=== PATIENT | male | born 1950 | race Caucasian/White ===

== ENCOUNTER 2018-07-11 09:05 | Day surgery (SDC) | payer MEDICARE, BC ==
[~2018-07-11] VITALS: Ht 172.7 cm; Wt 93.4 kg
[2018-07-11] VITALS (10 sets, daily range): BP systolic 126–151; BP diastolic 62–84
[~2018-07-11 09:05] MED LIST: DICL75TA5 PO; LORA0.5T PO; NAPR-56 PO; NOR5T PO; NORCO10T PO; PARO20TA53 PO; Senna PO; ZOLP10TA5 PO
[2018-07-11] MEDS ORDERED: diphenhydrAMINE 25mg capsule PO PRN (09:20)
[2018-07-11] MEDS ORDERED: sod bicarbonate 150mEq in D5W 1,150 ML IV ONE (09:20)
[2018-07-11] MEDS ORDERED: ASPI81TA52 PO (09:49)
[2018-07-11] MEDS ORDERED: HYDR-4353 PO (09:49)
[2018-07-11] MEDS ORDERED: DULO60CA64 PO (09:49)
[2018-07-11] MEDS ORDERED: BUPR1PAT20 TOP (09:49)
[2018-07-11] MEDS ORDERED: CARV6.253 PO (09:49)
[2018-07-11] MEDS ORDERED: ATOR40TA PO (09:49)
[2018-07-11] MEDS ORDERED: TICA90TA2 PO (09:49)
[2018-07-11] MEDS ORDERED: LISI-604 PO (09:49)
[2018-07-11 10:13] LABS: BASOPHILS # (AUTO) 0.1 X10'3 (0-0.2); BASOPHILS % (AUTO) 1.1 % (0-1); EOSINOPHILS # (AUTO) 0.4 X10'3 (0-0.9); EOSINOPHILS % (AUTO) 5.4 % (0-6); HEMATOCRIT 39.6 % (42.0-52.0); HEMOGLOBIN 13.4 g/dl (14.0-17.9); LYMPHOCYTES # (AUTO) 1.9 X10'3 (1.1-4.8); LYMPHOCYTES % (AUTO) 25.6 % (21-51); MEAN CORPUSCULAR HEMOGLOBIN 27.9 PG (27.0-31.0); MEAN CORPUSCULAR HGB CONC 33.9 g/dL (33.0-36.5); MEAN CORPUSCULAR VOLUME 82.5 FL (78-98); MEAN PLATELET VOLUME 8.6 FL (7.4-10.4); MONOCYTES % (AUTO) 13.8 % (2-12); NEUTROPHILS # (AUTO) 4.1 X10'3 (1.8-7.7); NEUTROPHILS % (AUTO) 54.1 % (42-75); PLATELET COUNT 275 X10'3 (140-440); RED CELL DISTRIBUTION WIDTH 16.5 % (11.5-14.5); WHITE BLOOD COUNT 7.5 X10'3 (4.5-11.0)
[2018-07-11] MEDS ORDERED: iohexol 350 MG/ML 50ML vial IV ONE (10:17)
[2018-07-11] MEDS ORDERED: fentaNYL/PF 50MCG/1 ML 2ML syringe ONE ×2 (10:17→11:00)
[2018-07-11] MEDS ORDERED: LIDOcaine 1% (10mg/ml)w/preservative injection 20ml MDV ONE (10:17)
[2018-07-11] MEDS ORDERED: midazolam 2 mg/2 ml injection ONE ×3 (10:17→10:58)
[2018-07-11] MEDS ORDERED: iohexol 350MG/ML 100ml bottle IV ONE (10:18)
[2018-07-11 10:20] LABS: ALBUMIN 3.5 G/DL (3.4-5.0); ANION GAP 10 (8-16); BLOOD UREA NITROGEN 13 MG/DL (7-18); BUN/CREATININE RATIO 15.9 (5.4-32.0); CALCIUM 9.3 MG/DL (8.5-10.1); CHLORIDE 105 MMOL/L (99-107); CREATININE 0.82 MG/DL (0.60-1.10); GLUCOSE 128 MG/DL (70-104); POTASSIUM 3.9 MMOL/L (3.5-5.1); SODIUM 141 MMOL/L (135-145); TOTAL CARBON DIOXIDE 25.6 MMOL/L (24-32); eGFR > 90 ML/MIN
[2018-07-11 10:34] LABS: PROTHROMBIN TIME 10.5 SECONDS (9.0-12.0)
[2018-07-11] MEDS ORDERED: normal saline 1000ml 1,000 ML IV SCH (10:35)
[2018-07-11] MEDS ORDERED: proCHLORperazine 10 MG/2 ml inj ONE (10:53)
== END 2018-07-11 15:30 | disposition home or self-care (01) ==
LOC: SSTAY O 09:05
PROVIDERS: ATTEND Internal Medicine Cardiovascular Disease
DX: I25.10 Atherosclerotic heart disease of native coronary artery without angina pectoris (principal); E78.5 Hyperlipidemia, unspecified; I10 Essential (primary) hypertension; E11.9 Type 2 diabetes mellitus without complications; F41.9 Anxiety disorder, unspecified; I25.5 Ischemic cardiomyopathy; Z98.890 Other specified postprocedural states; Z90.81 Acquired absence of spleen; Z82.3 Family history of stroke; Z82.0 Family history of epilepsy and other diseases of the nervous system; Z79.82 Long term (current) use of aspirin; Z79.899 Other long term (current) drug therapy; Z95.5 Presence of coronary angioplasty implant and graft
CPT/HCPCS: 36415; 80048; 82948; 83735; 85025; 85610; 93005; 93458; 99152; A6257; J0780; J1644; J2001; J2250; J3010; J7030; Q0163; Q9967; A4620; C1760; C1769; C1894

== ENCOUNTER 2019-01-06 13:10 | Outpatient (CLI) | payer MEDICARE, BC ==
[~2019-01-06] VITALS: Ht 172.7 cm; Wt 90.7 kg
[~2019-01-06 13:10] MED LIST changes: +ASPI81TA52 PO; +ATOR40TA PO; +BUPR1PAT20 TOP; +CARV6.253 PO; -DICL75TA5 PO; +DULO60CA65 PO; +HYDR-4353 PO; +LISI-604 PO; -LORA0.5T PO; -NAPR-56 PO; -NOR5T PO; -NORCO10T PO; -PARO20TA53 PO; -Senna PO; +TICA90TA2 PO
[2019-01-06] MEDS ORDERED: BUSP15TA7 PO (14:44)
[2019-01-06] MEDS ORDERED: METF-950 PO (14:44)
[2019-01-06] MEDS ORDERED: MELO-102 PO (14:44)
[2019-01-06 15:25] LABS: BASOPHILS # (AUTO) 0.1 X10'3 (0-0.2); BASOPHILS % (AUTO) 0.9 % (0-1); EOSINOPHILS # (AUTO) 0.5 X10'3 (0-0.9); EOSINOPHILS % (AUTO) 5.1 % (0-6); LYMPHOCYTES # (AUTO) 2.1 X10'3 (1.1-4.8); LYMPHOCYTES % (AUTO) 22.2 % (21-51); MEAN CORPUSCULAR HEMOGLOBIN 26.1 PG (27.0-31.0); MEAN CORPUSCULAR HGB CONC 32.1 g/dL (33.0-36.5); MEAN CORPUSCULAR VOLUME 81.5 FL (78-98); MEAN PLATELET VOLUME 8.1 FL (7.4-10.4); MONOCYTES # (AUTO) 0.9 X10'3 (0-0.9); MONOCYTES % (AUTO) 9.9 % (2-12); NEUTROPHILS # (AUTO) 5.9 X10'3 (1.8-7.7); NEUTROPHILS % (AUTO) 61.9 % (42-75); PRE OP HEMATOCRIT 40.4 % (42.0-52.0); PRE OP HEMOGLOBIN 12.9 g/dL (14.0-17.9); PRE OP PLATELET COUNT 352 X10'3 (140-440); RED BLOOD COUNT 4.95 X10'6 (4.70-6.10); RED CELL DISTRIBUTION WIDTH 15.5 % (11.5-14.5)
[2019-01-06 15:37] LABS: HEMOGLOBIN A1C 6.3 % (4.5-6.2)
[2019-01-06 15:38] LABS: PRE OP INR 0.9 INR
[2019-01-06 15:52] LABS: ALBUMIN 3.8 G/DL (3.4-5.0); ALBUMIN/GLOBULIN RATIO 0.9 (1.1-1.5); ALKALINE PHOSPHATASE 79 IU/L (46-116); BLOOD UREA NITROGEN 19 MG/DL (7-18); BUN/CREATININE RATIO 24.1 (5.4-32.0); CALCIUM 9.5 MG/DL (8.5-10.1); CHLORIDE 106 MMOL/L (99-107); CREATININE 0.79 MG/DL (0.60-1.10); PRE OP ALT 26 U/L (30-65); PRE OP ANION GAP 7 (8-16); PRE OP AST 26 U/L (10-37); PRE OP BILIRUB, TOTAL 0.2 MG/DL (0.0-1.0); PRE OP GLUCOSE 96 MG/DL (70-104); PRE OP POTASSIUM 4.5 MMOL/L (3.4-5.1); PRE OP SODIUM 142 MMOL/L (135-145); TOTAL CARBON DIOXIDE 28.7 MMOL/L (24-32); TOTAL PROTEIN 8.2 G/DL (6.4-8.2); eGFR > 90 ML/MIN
[2019-01-14] MEDS ORDERED: famotidine 20mg tablet PO ONE (09:00)
[2019-01-14] MEDS ORDERED: metoclopramide 5 mg/ml inj IV ONE (09:00)
[2019-01-14] MEDS ORDERED: DOCUMENT DATE & TIME OF BETA-BLOCKER PO ONE (09:00)
[2019-01-14] MEDS ORDERED: cefazolin/dext.iso 2gm/50ml 50 ML IV ONE (09:00)
[2019-01-14] MEDS ORDERED: ringers solution, lacted 1,000 ML IV SCH (09:00)
[2019-01-14] MEDS ORDERED: tranexamic acid inj. 1,000 MG in normal saline 100 ML IV ONE (09:00)
[2019-01-14] MEDS ORDERED: oxyCODONE SR 10mg (sust. release) tab PO ONE (09:00)
[2019-01-14] MEDS ORDERED: acetaminophen 325mg tablet PO ONE (09:00)
[2019-01-14] MEDS ORDERED: gabapentin 300mg capsule PO ONE (09:00)
[2019-01-14] MEDS ORDERED: vancomycin inj 1,500 MG in normal saline 300ml IV soln IV ONE (09:00)
== END 2019-01-06 23:59 | disposition home or self-care (01) ==
LOC: PRE-OP 13:10 → EDSTATUS 01-14 11:00
PROVIDERS: ATTEND Orthopaedic Surgery
DX: M16.11 Unilateral primary osteoarthritis, right hip (principal); Z01.812 Encounter for preprocedural laboratory examination; M25.551 Pain in right hip
CPT/HCPCS: 36415; 80053; 83036; 85025; 85610; 85730; 86885; 86900; 86901; 87081; 93005; J3370; J7120

== ENCOUNTER 2019-02-24 15:20 | Outpatient (CLI) | payer MEDICARE, BC ==
[~2019-02-24 15:20] MED LIST changes: +BUSP15TA7 PO; +MELO-102 PO; +METF-950 PO
[2019-02-24 16:58] LABS: BASOPHILS # (AUTO) 0.1 X10'3 (0-0.2); BASOPHILS % (AUTO) 0.6 % (0-1); EOSINOPHILS # (AUTO) 0.1 X10'3 (0-0.9); EOSINOPHILS % (AUTO) 1.1 % (0-6); LYMPHOCYTES # (AUTO) 1.9 X10'3 (1.1-4.8); LYMPHOCYTES % (AUTO) 16.8 % (21-51); MEAN CORPUSCULAR HEMOGLOBIN 25.5 PG (27.0-31.0); MEAN CORPUSCULAR HGB CONC 31.9 g/dL (33.0-36.5); MEAN PLATELET VOLUME 7.7 FL (7.4-10.4); MONOCYTES # (AUTO) 1.1 X10'3 (0-0.9); MONOCYTES % (AUTO) 9.9 % (2-12); NEUTROPHILS # (AUTO) 8.2 X10'3 (1.8-7.7); NEUTROPHILS % (AUTO) 71.6 % (42-75); PRE OP HEMATOCRIT 30.9 % (42.0-52.0); PRE OP PLATELET COUNT 557 X10'3 (140-440); RED BLOOD COUNT 3.87 X10'6 (4.70-6.10); RED CELL DISTRIBUTION WIDTH 17.1 % (11.5-14.5)
[2019-02-24 17:01] LABS: PRE OP HEMOGLOBIN 9.9 g/dL (14.0-17.9)
[2019-02-24 17:14] LABS: PRE OP PROTIME 10.3 SECONDS (9.0-12.0)
[2019-02-24 17:16] LABS: ALBUMIN 3.8 G/DL (3.4-5.0); ALBUMIN/GLOBULIN RATIO 0.9 (1.1-1.5); ALKALINE PHOSPHATASE 82 IU/L (46-116); BLOOD UREA NITROGEN 15 MG/DL (7-18); CALCIUM 9.7 MG/DL (8.5-10.1); CHLORIDE 103 MMOL/L (99-107); CREATININE 1.07 MG/DL (0.60-1.10); PRE OP ALT 22 U/L (30-65); PRE OP ANION GAP 10 (8-16); PRE OP AST 26 U/L (10-37); PRE OP BILIRUB, TOTAL 0.3 MG/DL (0.0-1.0); PRE OP GLUCOSE 103 MG/DL (70-104); PRE OP POTASSIUM 3.6 MMOL/L (3.4-5.1); PRE OP SODIUM 139 MMOL/L (135-145); TOTAL CARBON DIOXIDE 25.6 MMOL/L (24-32); eGFR 68 ML/MIN
== END 2019-02-24 23:59 | disposition home or self-care (01) ==
LOC: PRE-OP 15:20 → EDSTATUS 03-04 10:15
PROVIDERS: ATTEND Orthopaedic Surgery
DX: Z01.818 Encounter for other preprocedural examination (principal); M16.11 Unilateral primary osteoarthritis, right hip; I10 Essential (primary) hypertension; Z96.642 Presence of left artificial hip joint; Z96.651 Presence of right artificial knee joint
CPT/HCPCS: 36415; 80053; 83036; 85025; 85610; 85730; 86885; 86900; 86901; 87081

== ENCOUNTER 2021-01-18 10:40 | Outpatient (CLI) | payer OTHER ==
[~2021-01-18 10:40] MED LIST changes: +ASCO500C18 PO; -ASPI81TA52 PO; -BUPR1PAT20 TOP; -BUSP15TA7 PO; +BUSP5TAB3 PO; +FERR324T12 PO; -HYDR-4353 PO; -LISI-604 PO; +LISI-790 PO; -MELO-102 PO; +PANT-47 PO; -TICA90TA2 PO; +[UNRECOGNIZED DRUG - OTHER] PO
[2021-01-18 12:31] LABS: ALANINE AMINOTRANSFERASE 27 U/L (12-78); ALBUMIN 3.1 G/DL (3.4-5.0); ALBUMIN/GLOBULIN RATIO 0.5 (1.1-1.5); ALKALINE PHOSPHATASE 85 IU/L (46-116); ANION GAP 9 (8-16); ASPARTATE AMINO TRANSFERASE 35 U/L (10-37); BILIRUBIN,TOTAL 0.4 MG/DL (0.1-1.0); BLOOD UREA NITROGEN 13 MG/DL (7-18); BUN/CREATININE RATIO 17.1 (5.4-32.0); CALCIUM 8.7 MG/DL (8.5-10.1); CHLORIDE 106 MMOL/L (99-107); CREATININE 0.76 MG/DL (0.60-1.10); GLUCOSE 129 MG/DL (70-104); POTASSIUM 4.2 MMOL/L (3.5-5.1); SODIUM 142 MMOL/L (135-145); TOTAL CARBON DIOXIDE 27.1 MMOL/L (24-32); TOTAL PROTEIN 8.8 G/DL (6.4-8.2); eGFR > 90 ML/MIN
[2021-01-18 12:32] LABS: CLARITY,URINE CLEAR (Clear); COLOR,URINE YELLOW (Yellow); GLUCOSE, URINE NEGATIVE (Neg); KETONES,URINE NEGATIVE (Neg); LEUKOCYTE ESTERASE ,URINE NEGATIVE (Neg); NITRITES, URINE NEGATIVE (Neg); OCCULT BLOOD,URINE NEGATIVE (Neg); PROTEIN,URINE NEGATIVE (Neg); UA COLLECTION TYPE CLN CATCH MIDSTREAM; UROBILINOGEN,URINE 0.2 E.U/dL (0.2-1.0)
== END 2021-01-18 23:59 | disposition home or self-care (01) ==
LOC: CARD DIAG 10:40
DX: I08.0 Rheumatic disorders of both mitral and aortic valves (principal); I25.10 Atherosclerotic heart disease of native coronary artery without angina pectoris; E11.9 Type 2 diabetes mellitus without complications
CPT/HCPCS: 36415; 80053; 81003; 93306

== ENCOUNTER 2025-03-02 09:07 | Day surgery (SDC) | payer MEDICARE, BC ==
[~2025-03-02] VITALS: Ht 172.7 cm; Wt 88.5 kg
[~2025-03-02 09:07] MED LIST changes: +AMIO200T73 PO; +APIX5TAB3 PO; -ASCO500C18 PO; -ATOR40TA PO; -BUSP5TAB3 PO; -CARV6.253 PO; -DULO60CA65 PO; +EMPA25TA PO; -FERR324T12 PO; +GABA300T28 PO; -LISI-790 PO; -METF-950 PO; +METO-395 PO; +OXYC-657 PO; +OXYC1TAB17 PO; -PANT-47 PO; -ZOLP10TA5 PO; -[UNRECOGNIZED DRUG - OTHER] PO
[2025-03-02 09:44] VITALS: BP 134/76; PULSE 64; RESP 16; TEMP 97.8; O2SAT 96
[2025-03-02] MEDS ORDERED: MIDAZolam 1mg/ml 10ml vial IV ONE (09:55)
[2025-03-02] MEDS ORDERED: fentaNYL/PF 50MCG/1 ML 2ML syringe IV ONE (09:55)
[2025-03-02] MEDS ORDERED: normal saline 1000ml 1,000 ML IV SCH (09:55)
== END 2025-03-02 10:00 | disposition home or self-care (01) ==
LOC: SSTAY O 09:07
PROVIDERS: ATTEND Student in an Organized Health Care Education/Training Program
DX: I48.0 Paroxysmal atrial fibrillation (principal); Z53.8 Procedure and treatment not carried out for other reasons; E11.9 Type 2 diabetes mellitus without complications; F32.A Depression, unspecified; F41.9 Anxiety disorder, unspecified; I10 Essential (primary) hypertension; I25.2 Old myocardial infarction; Z96.642 Presence of left artificial hip joint; Z96.651 Presence of right artificial knee joint; Z98.890 Other specified postprocedural states
CPT/HCPCS: J7030; Z7610

== ENCOUNTER 2025-03-30 09:27 | Day surgery (SDC) | payer MEDICARE, BC ==
[2025-03-24 14:21] LABS: MEAN PLATELET VOLUME 8.3 FL (7.4-10.4); RED CELL DISTRIBUTION WIDTH 15.2 % (11.5-14.5)
[2025-03-24 14:29] LABS: CREATININE 0.95 MG/DL (0.60-1.10); TOTAL CARBON DIOXIDE 29.2 MMOL/L (24-32); eGFR 77 ML/MIN
[2025-03-24 14:34] LABS: APTT 36 SECONDS (22-32); INR 1.2 INR
[~2025-03-30] VITALS: Ht 172.7 cm; Wt 89.3 kg
[~2025-03-30 09:27] MED LIST changes: +ROSU10TA98 PO
[2025-03-30] MEDS ORDERED: fentaNYL/PF 50MCG/1 ML 2ML syringe IV ONE (09:50)
[2025-03-30] MEDS ORDERED: normal saline 1000ml 1,000 ML IV SCH (09:50)
[2025-03-30] MEDS ORDERED: MIDAZolam 1mg/ml 10ml vial IV ONE (09:50)
[2025-03-30 10:04] VITALS: BP 149/93; PULSE 77; RESP 16; TEMP 97.8; O2SAT 95
[2025-03-30] MEDS ORDERED: midazolam 1 mg/ML 2ml injection ONE (11:37)
[2025-03-30] MEDS ORDERED: atropine 0.1mg/ml 10ml syringe ONE (11:37)
[2025-03-30] MEDS ORDERED: fentaNYL/PF 50MCG/1 ML 2ML syringe ONE (11:37)
[2025-03-30 12:25] VITALS: BP 137/75; PULSE 57; RESP 19; O2SAT 92
[2025-03-30 12:40] VITALS: BP 131/66; PULSE 46; RESP 19; O2SAT 92
[2025-03-30 12:50] VITALS: BP 104/69; PULSE 58; RESP 19; O2SAT 92
[2025-03-30 13:01] VITALS: BP 136/74; PULSE 57; RESP 19; O2SAT 92
[2025-03-30 13:10] VITALS: BP 120/65; PULSE 45; RESP 19; O2SAT 95
--- NOTE | 2025-03-30 13:11 | ELECTROCARDIOGRAPH REPORT ---
[facility] Test Date: 2025-03-30 Test Time: 13:09:06 Pat Name: NATALIE SINCLAIR Department: [facility] Patient ID: [facility]-[id number] Room: Gender: M [employer]: LARRY : 1950 Requested By: ANNABEL SCHULZ Order Number: [id number] Reading MD: Dr. SARMAD Bishop Measurements Intervals Spencer Rate: 44 P: 42 NE: 202 QRS: 13 QRSD: 109 T: 48 QT: 494 QTc: 423 Interpretive Statements Sinus bradycardia Atrial premature complex Electronically Signed On 03-30-2025 17:33:[address] SARMAD Bishop Please click the below link to view image of tracing.
--- NOTE | 2025-04-15 15:00 | CARDIOLOGY REPORT ---
DATE OF SERVICE: 03/30/2025 DICTATING PHYSICIAN: Jay Mcdonnell MD DATE OF STUDY: 03/30/2025 NAME OF STUDY: Electrical cardioversion. PROCEDURE: The patient was brought to cardiac short stay where she was prepped in the usual manner. After gradual increments of Versed and fentanyl, and conscious sedation was obtained, the patient was cardioverted. The patient remained clinically and hemodynamically stable throughout the procedure. IMPRESSION: Successful electrical cardioversion to normal sinus rhythm without complication. Jay Mcdonnell MD TID: [id number] RECEIPT: [id number]/UDMichi
== END 2025-03-30 13:15 | disposition home or self-care (01) ==
LOC: SSTAY O 09:27
PROVIDERS: ATTEND Student in an Organized Health Care Education/Training Program
DX: I48.0 Paroxysmal atrial fibrillation (principal); I49.1 Atrial premature depolarization; I25.10 Atherosclerotic heart disease of native coronary artery without angina pectoris; I10 Essential (primary) hypertension; E11.9 Type 2 diabetes mellitus without complications; E78.00 Pure hypercholesterolemia, unspecified; F41.9 Anxiety disorder, unspecified; F32.A Depression, unspecified; I25.2 Old myocardial infarction; Z79.891 Long term (current) use of opiate analgesic; Z79.01 Long term (current) use of anticoagulants; Z79.899 Other long term (current) drug therapy
CPT/HCPCS: 36415; 80048; 82948; 85025; 85610; 85730; 92960; 93005; J2250; J3010; J7030; Z7610; 99152; J0461